=== PATIENT | male | born 1950 | race Caucasian/White ===

== ENCOUNTER 2016-04-10 09:17 | Inpatient (IN) | payer OTHER ==
[2016-03-14 11:07] VITALS: BMI 25.0
--- NOTE | 2016-03-14 11:34 | PAT Medication Instructions ---
Service Date Mar 14, 2016. Current Home Medication List Ascorbic Acid (Vitamin C), 1 TAB PO BID Budesonide/Formoterol Fumarate (Symbicort 160/4.5 Inhaler ), 1 PUFFS INH BID Flaxseed (Linseed) (Flax Seeds), 30 ML PO QAM Ibuprofen (Motrin), 800 MG PO QAM Lisinopril (Zestril), 10 MG PO QAM Montelukast Sodium (Singulair), 10 MG PO QPM [preparation h], PRN Medication Instructions For Your Scheduled Surgery - Check with surgeon for instructions: Ibuprofen (Motrin), 800 MG PO QAM - Hold the following medications 2 weeks prior to surgery: Flaxseed (Linseed) (Flax Seeds), 30 ML PO QAM - Hold the following medications the morning of surgery: [preparation h], PRN Lisinopril (Zestril), 10 MG PO QAM Ascorbic Acid (Vitamin C), 1 TAB PO BID - Take the following medications the morning of surgery with a sip of water: Budesonide/Formoterol Fumarate (Symbicort 160/4.5 Inhaler ), 1 PUFFS INH BID - Take the following medications as scheduled the night before surgery: [preparation h], PRN Montelukast Sodium (Singulair), 10 MG PO QPM Budesonide/Formoterol Fumarate (Symbicort 160/4.5 Inhaler ), 1 PUFFS INH BID Ascorbic Acid (Vitamin C), 1 TAB PO BID If you have any questions please call us at [phone] (Cyndy Napier PA-C) or [phone] or [phone]
[2016-03-14 12:28] LABS: BASO % 0.8 %; BASO ABS # 0.04 K/uL (0-0.2); COMPLETE YES; EOS % 1.8 %; HEMATOCRIT 42.3 % (42-52); LYMPH % 29.1 %; LYMPH ABS # 1.48 K/uL (1.2-3.4); MEAN CELL VOLUME 88.9 fL (80-100); MEAN CORPUSCULAR HEMOGLOBIN 29.8 pg (25-34); MEAN CORPUSCULAR HGB CONC 33.6 g/dl (32-36); MEAN PLATELET VOLUME 10.4 fL (7.4-10.4); NEUT % 57.3 %; PLATELET COUNT 263 K/uL (130-400); RED BLOOD COUNT 4.76 M/uL (4.7-6.1); WHITE BLOOD COUNT 5.08 K/uL (4.8-10.8)
--- NOTE | 2016-03-14 12:34 | DIAGNOSTIC IMAGING REPORT ---
CHEST 2 VIEWS ROUTINE CLINICAL HISTORY: Preoperative chest COMPARISON STUDY: 03/19/2012 FINDINGS: There is a 3 mm right midlung zone nodule likely postinflammatory. The heart is normal in size. There is no failure. There is no lobar consolidation. There are linear bibasilar atelectatic changes left greater than right. No pleural effusions are visualized.[ IMPRESSION: No active disease in the chest. Electronically signed by: Yuri Skelton M.D. 03/14/2016 12:33 PM
[2016-03-14 12:35] LABS: URINE APPEARANCE CLEAR (CLEAR); URINE BILIRUBIN NEG (NEG); URINE COLOR YELLOW; URINE NITRITE NEG (NEG); URINE PH 5.5 (4.5-7.5); URINE SPECIFIC GRAVITY 1.032 (1.000-1.030); UROBILINOGEN NEG (NEG); ZZUR CULT IF INDIC CLEAN CATCH NO
[2016-03-14 12:39] LABS: PROTHROMBIN TIME (PATIENT) 10.7 SECONDS (9.0-12.0)
[2016-03-14 12:40] LABS: MANUAL MICROSCOPIC REQUIRED? NO; REVIEW REQ? NO
[2016-03-14 13:29] LABS: BUN/CREATININE RATIO 23.1 (10-20); CREATININE 1.1 mg/dl (0.60-1.40); POTASSIUM 4.6 mmol/L (3.5-5.1)
[2016-03-14 13:47] LABS: CALCIUM 9.3 mg/dl (8.5-10.1)
--- NOTE | 2016-04-08 10:48 | HISTORY & PHYSICAL EXAMINATION ---
DATE OF ADMISSION: 04/09/2016 CHIEF COMPLAINT: Left knee pain. HISTORY OF PRESENT ILLNESS: Mr. Moreno is a 65-year-old male with a multiple year history of pain in his left knee. The patient rates his pain a 10/10. He has pain with his daily activities. He has limited standing and walking tolerance. Pain is worse with weightbearing. The patient has been taking anti-inflammatories and home exercise program without relief. He has failed conservative treatment and is scheduled for a left knee replacement. PAST MEDICAL HISTORY: Hypertension. He denies heart disease, diabetes or DVT. PAST SURGICAL HISTORY: Right total knee arthroplasty in 2012. SOCIAL HISTORY: The patient denies alcohol. He does admit to tobacco use. 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 FAMILY HISTORY: Negative for DVT. MEDICATIONS: Lisinopril 10 mg daily, montelukast 10 mg, ibuprofen 800 mg, Symbicort 160/4.5 mg, Emergen-C, and flaxseed oil. ALLERGIES: None. REVIEW OF SYSTEMS: See HPI. Ten other systems reviewed, all negative. PHYSICAL EXAMINATION: VITAL SIGNS: Height 5 feet 9 inches, weight 173 pounds, BMI is 26. GENERAL: This is a well-developed, well-nourished male who is alert and oriented x3. Mood and affect are appropriate. HEENT: Normocephalic, atraumatic. Mucous membranes are moist and intact. NECK: Supple without lymphadenopathy. HEART: Regular rate and rhythm without murmurs, rubs or gallops. LUNGS: Clear to auscultation without wheezes or rhonchi. ABDOMEN: Soft and nontender. Bowel sounds are equal and active. EXTREMITIES: No ecchymosis, redness or warmth. He has varus deformity. Range of motion is from 5-115 degrees with +2 laxity. He is neurovascularly intact with +5/5 strength. X-RAY EXAMINATION: AP and lateral views show joint space narrowing and osteophyte formation. IMPRESSION: Degenerative joint disease left knee. PLAN: The patient will be admitted for a left total knee arthroplasty. We will plan on aspirin for DVT prophylaxis. The patient's PCP is Dr. Gordon Andrade, in [place], [place]. He is unsure at this time if he is doing home physical therapy or outpatient.
[~2016-04-10] VITALS: Ht 175.3 cm; Wt 77.2 kg
[2016-04-10] VITALS (7 sets, daily range): BP systolic 124–171; BP diastolic 74–99; PULSE 57–87; TEMP 36.7–37; O2SAT 94–98; Ht 175.3 cm; Wt 77.2 kg
[2016-04-10] MEDS: TRANEXAMIC ACID INJ 1,000 MG in SODIUM CHLORIDE 0.9% 100ML 100 ML IV SCH ×2 (06:30→11:42)
--- NOTE | 2016-04-10 08:55 | History & Physical Bridge Note ---
H&P Re-Evaluation Bridge Note: I have examined the patient, reviewed the History & Physical and in the interval since the performance of the History & Physical I have noted the following changes of clinical significance: No changes noted
[~2016-04-10 09:17] MED LIST: ACETAMINOPHEN 500 MG TAB PO SCH; ASCO10003 PO; BUPIVACAINE 0.5 % 5 MG/1 ML PF 10ML VIAL ONE; BUPIVACAINE/EPINEPHRINE 0.25% 1:200,000 30 ML VIAL ONE; CEFAZOLIN 2000 MG/60 ML D5W 60 ML IV SCH; CeleBREX 200 MG CAP PO SCH; DEXAMETHASONE 4 MG TAB PO SCH; DEXAMETHASONE SOD INJ 4 MG/ML VIAL ONE; FAMOTIDINE 20 MG TAB PO SCH; FLAXPOW2 PO; GABAPENTIN 300 MG CAP PO SCH; IBUP-1428 PO; LACTATED RINGER'S 1000ML 500 ML IV ONE; LACTATED RINGER'S 1000ML IV SCH; LACTATED RINGER'S 500 ML IV SCH; LISI-461 PO; METOCLOPRAMIDE HCL 10 MG TAB PO SCH; MONT1TAB3 PO; OXYCODONE HCL 10 MG TABCR (OXYCONTIN) PO SCH; POLYMYXIN B SULFATE 100,000 UNITS in NSS 100ML IR SCH; PREPARATION H; ROPIVACAINE 5MG/ML 30 ML 150 MG, BUPIVACAINE/EPINEPHR 0.5% MPF 30 ML, KETOROLAC TROMETH... INFIL SCH; SYMIN160 INH; TRANEXAMIC ACID INJ 1,000 MG in SODIUM CHLORIDE 0.9% 100ML 100 ML IV SCH; VANCOMYCIN INJ 400 MG in NSS 100ML IR SCH
[2016-04-10] MEDS ORDERED: EpHEDrine SULFATE INJ 50 MG/ML AMP IV PRN (10:30)
[2016-04-10] MEDS ORDERED: FENTANYL CITRATE INJ 50 MCG/1 ML 2 ML VIAL IV PRN (10:30)
[2016-04-10] MEDS ORDERED: ONDANSETRON INJ 2 MG/ML 2 ML VIAL IV PRN ×2 (10:30→13:15)
[2016-04-10] MEDS ORDERED: ATROPINE SULFATE 0.1 MG/ML 5ML SYR IV PRN (10:30)
[2016-04-10] MEDS ORDERED: MIDAZOLAM HCL 1 MG/ML 2ML VIAL ONE (10:49)
[2016-04-10] MEDS ORDERED: ORTHO JOINT ANESTHETIC ONE (11:54)
[2016-04-10] MEDS ORDERED: BUPIVACAINE/EPINEPHRINE 0.25% 1:200,000 30 ML VIAL INJ ONE (12:37)
[2016-04-10] MEDS ORDERED: LIDOCAINE HCL 2% 2 ML VIAL (20MG/ML) ONE (12:43)
[2016-04-10] MEDS ORDERED: PROPOFOL IV EMULSION 10 MG/ML 20 ML VIAL IV ONE (12:43)
[2016-04-10] MEDS ORDERED: POVIDONE-IODINE OP SOLN 30 ML BTL TOP ONE (13:00)
[2016-04-10] MEDS ORDERED: BACITRACIN 50000 UNIT VIAL IR ONE (13:00)
--- NOTE | 2016-04-10 13:07 | [facility] Post Operative Brief Note ---
Immediate Operative Summary Operative Date Apr 10, 2016. Pre-Operative Diagnosis Degenerative joint disease, left knee Post-Operative Diagnosis same as preop Procedure(s) Performed Left Total Knee Arthroplasty Surgeon Dr. Jamel Ureña [employer] Surgeon(s) MAYA Agudelo Estimated Blood Loss 75ML Findings DJD TRICOMP Specimens A: Left knee bone and tissue Complication(s) None Disposition Recovery Room / PACU
[2016-04-10] MEDS ORDERED: DiphenhydrAMINE HCL 50 MG/ML VIAL IV PRN (13:15)
[2016-04-10] MEDS ORDERED: OXYCODONE HCL IR 5 MG TAB (IMMEDIATE RELEASE) PO PRN (13:15)
[2016-04-10] MEDS ORDERED: MoRPHine SULFATE 2 MG/ML CARP IV PRN (13:15)
[2016-04-10] MEDS ORDERED: METOCLOPRAMIDE HCL INJ 5 MG/ML 2 ML VIAL IV PRN (13:15)
[2016-04-10] MEDS ORDERED: BISACODYL 10 MG SUPP PR PRN (13:15)
[2016-04-10] MEDS ORDERED: KETOROLAC TROMETHAMINE 15 MG/ML VIAL IV. PRN (13:15)
[2016-04-10] MEDS ORDERED: TRAMADOL HCL 50 MG TAB PO PRN (13:15)
[2016-04-10] MEDS ORDERED: MAGNESIUM HYDROXIDE SUSP 30 ML UDC PO PRN (13:15)
[2016-04-10] MEDS ORDERED: SOD PHOSPHATE/SOD BIPHOSPHATE ENEMA 132 ML BTL PR PRN (13:15)
[2016-04-10] MEDS ORDERED: ZOLPIDEM TARTRATE 5 MG TAB PO PRN (13:15)
[2016-04-10] MEDS ORDERED: ALUMINUM/MAGNESIUM/SIMETH (MAALOX MAX) 30 ML UDC PO PRN (13:15)
--- NOTE | 2016-04-10 13:27 | OPERATIVE REPORT ---
DATE OF OPERATION: 04/10/2016 PREOPERATIVE DIAGNOSIS: Degenerative arthritis, left knee. POSTOPERATIVE DIAGNOSIS: Same. PROCEDURE: Left total knee with patient matched implant. SURGEON: Dr. Ureña. SENIOR GENETIC COUNSELOR: Alvarez Aleman PA-C. ANESTHESIA: Spinal. BLOOD LOSS: 75 mL. TOURNIQUET TIME: 20 minutes at 250 mmHg. DRAINS: Hemovac x2. CULTURES: None. COMPLICATIONS: None. COMPONENTS USED: Ngo \T\ Nephew Journey Knee System: Femur size 6, tibia size 5 x 11, patella size 38. NOTE: Alvarez Aleman PA-C was present and assisted throughout due to the complicated nature of this case. He helped with preparation and setup, first assisted throughout and personally closed the capsule, subcutaneous and skin layers. He also applied the postoperative dressing. OPERATION AND FINDINGS: DESCRIPTION: Following satisfactory spinal, the patient was supine. A tourniquet was placed but not initially inflated. The lower extremity was prepared with ChloraPrep and draped sterilely. Following a surgical time-out, a midline incision was made with a trivector approach. The knee showed severe grade 4 changes with a 10-degree flexion contracture and severe bone wear on the medial side. The cruciate ligaments were excised. The patient matched femoral block was applied. Femoral distal rotation and resection were set and completed. The 4-in-1 block was used to finish preparation of the femur. The patient matched tibial block was applied. Tibial resection was completed. Patella was freehand cut. Soft tissue balancing was completed and a trial reduction showed good tensioning and stability on the collateral ligaments, stable range of motion, and the patella tracked well. The tourniquet was inflated for better cement technique. The trial components were removed. The capsule was prepared with the orthopedic cocktail and after irrigation, the components were cemented with Simplex G cement. A Betadine soak was performed. When the cement had hardened, the Betadine was irrigated. The tourniquet was deflated. Two drains were placed. The arthrotomy was closed with a running suture of 0 V-Loc and reinforced with #1 Vicryl. The subcutaneous tissues were closed with 2-0 Vicryl and the skin with a running subcuticular stitch of 3-0 V-Loc. Dermabond and a dry dressing were applied. The patient was returned to his bed in good condition. I attest to the content of the Intraoperative Record and any orders documented therein. Any exceptio ns are noted below.
--- NOTE | 2016-04-10 14:31 | DIAGNOSTIC IMAGING REPORT ---
LEFT KNEE 1 OR 2 VIEWS ROUTINE CLINICAL HISTORY: Postop examination COMPARISON: None. DISCUSSION: There are postsurgical changes of a total left knee arthroplasty and patellar resurfacing. The femoral and tibial components appear well seated. There is an overlying surgical drain. There is air in soft tissues consistent with recent surgery. IMPRESSION: Postsurgical changes of a total left knee arthroplasty. Electronically signed by: Yuri Skelton M.D. 04/10/2016 2:30 PM
--- NOTE | 2016-04-10 14:47 | Anesthesiology Progress Note ---
Anesthesia Post Op Note Date & Time Apr 10, 2016 at 14:46 Vital Signs Pain Intensity: 3 Vital Signs Past 12 Hours Date Time Temp Pulse Resp B/P Pulse Ox O2 Delivery O2 Flow Rate FiO2 04/10/16 14:30 36.5 60 16 105/70 99 Nasal Cannula 2 04/10/16 14:15 36.5 61 16 108/71 99 Nasal Cannula 2 04/10/16 14:05 61 16 120/68 99 Nasal Cannula 2 04/10/16 13:55 60 16 118/72 99 Nasal Cannula 2 04/10/16 13:45 60 16 119/73 99 Nasal Cannula 2 04/10/16 13:39 36.6 62 16 109/70 100 Nasal Cannula 2 04/10/16 09:43 36.9 77 18 171/99 96 Room Air Notes Mental Status: alert / awake / arousable, participated in evaluation Pt Amnestic to Procedure: Yes Nausea / Vomiting: adequately controlled Pain: adequately controlled Airway Patency, RR, SpO2: stable & adequate BP & HR: stable & adequate Hydration State: stable & adequate Neuraxial Anesthesia: was administered, sensory block is resolving Anesthetic Complications: no major complications apparent
[2016-04-10] MEDS: D5W AND 1/2NSS + 20MEQ KCL 1,000 ML IV SCH (16:41)
[2016-04-10] MEDS: CEFAZOLIN IV 2,000 MG in DEXTROSE 5% 50ML 50 ML IV SCH (19:42)
[2016-04-10] MEDS ORDERED: TRANEXAMIC ACID INJ 1,000 MG in SODIUM CHLORIDE 0.9% 100ML 100 ML IV SCH (20:00)
[2016-04-10] MEDS: BUDESONIDE/FORMOTEROL FUMARATE 160/4.5 60 PUFFS/INHALER INH SCH (20:58)
[2016-04-10] MEDS: OXYCODONE HCL 10 MG TABCR (OXYCONTIN) PO SCH (21:00)
[2016-04-10] MEDS ORDERED: MONTELUKAST SOD 10 MG TAB PO SCH (21:00)
[2016-04-10] MEDS ORDERED: ASCORBIC ACID 500 MG TAB PO SCH (21:00)
[2016-04-10] MEDS ORDERED: SENNA 8.6 MG TAB PO SCH (21:00)
[2016-04-10] MEDS: ASPIRIN 81 MG ECTAB PO SCH (21:00)
[2016-04-10] MEDS: ASCORBIC ACID 500 MG TAB PO SCH (21:09)
[2016-04-10] MEDS: ACETAMINOPHEN 500 MG TAB PO SCH (21:58)
[2016-04-11] MEDS: D5W AND 1/2NSS + 20MEQ KCL 1,000 ML IV SCH (01:32)
[2016-04-11 03:30] VITALS: BP 122/77; PULSE 53; TEMP 36.6; O2SAT 96
[2016-04-11] MEDS: CEFAZOLIN IV 2,000 MG in DEXTROSE 5% 50ML 50 ML IV SCH (03:34)
[2016-04-11 03:39] VITALS: PULSE 61
[2016-04-11] MEDS: ACETAMINOPHEN 500 MG TAB PO SCH (05:17)
[2016-04-11 07:21] LABS: HEMATOCRIT 35.9 % (42-52); MEAN CELL VOLUME 87.3 fL (80-100); MEAN CORPUSCULAR HGB CONC 33.1 g/dl (32-36); PLATELET COUNT 248 K/uL (130-400); RED BLOOD COUNT 4.11 M/uL (4.7-6.1); WHITE BLOOD COUNT 12.44 K/uL (4.8-10.8)
[2016-04-11 07:31] VITALS: BP 159/86; PULSE 61; TEMP 36.7; O2SAT 96
--- NOTE | 2016-04-11 07:41 | Orthopedic Progress Note ---
Orthopedic Progress Note Date of Service Apr 11, 2016. Subjective Post OP Day: 1 Reports: feeling well, Denies: SOB, calf pain, chest pain, light headedness, nausea / vomiting Objective calves soft nontender, N/V intact, dressing C/D/I, A&O x3, toes mobile, hemovac drainage (140/50CC PER SHIFT) Date Time Temp Pulse Resp B/P Pulse Ox O2 Delivery O2 Flow Rate FiO2 04/11/16 07:31 36.7 61 16 159/86 96 Room Air 04/11/16 03:39 61 04/11/16 03:30 36.6 53 14 122/77 96 Room Air 04/10/16 23:27 36.7 57 16 126/74 94 Room Air 04/10/16 23:20 Room Air 04/10/16 18:44 36.8 67 14 147/88 96 Nasal Cannula 2.0 04/10/16 17:51 36.7 66 16 127/79 98 Nasal Cannula 2.0 04/10/16 16:43 36.7 71 16 145/86 98 Nasal Cannula 2.0 04/10/16 16:12 36.8 87 18 128/74 97 Nasal Cannula 2.0 04/10/16 15:45 95 Nasal Cannula 2.0 04/10/16 15:45 37.0 81 16 124/86 95 Nasal Cannula 2.0 04/10/16 15:45 95 Nasal Cannula 2.0 04/10/16 15:30 74 16 115/60 99 Nasal Cannula 2 04/10/16 15:15 67 16 118/72 99 Nasal Cannula 2 04/10/16 15:00 69 16 121/74 99 Nasal Cannula 2 04/10/16 14:45 36.7 62 16 108/72 99 Nasal Cannula 2 04/10/16 14:30 36.5 60 16 105/70 99 Nasal Cannula 2 04/10/16 14:15 36.5 61 16 108/71 99 Nasal Cannula 2 04/10/16 14:05 61 16 120/68 99 Nasal Cannula 2 04/10/16 13:55 60 16 118/72 99 Nasal Cannula 2 04/10/16 13:45 60 16 119/73 99 Nasal Cannula 2 04/10/16 13:39 36.6 62 16 109/70 100 Nasal Cannula 2 04/10/16 09:43 36.9 77 18 171/99 96 Room Air Laboratory Results 24 Hours: Test 04/11/16 06:54 Hematocrit 35.9 % Hemoglobin 11.9 g/dL Assessment & Plan Assessment: POD#1 SP LEFT TKA Inhouse Planning Pain Management: Celebrex, Oxycontin, PO Tylenol, Oxy IR DVT Prophylaxis: TEDs, SCDs, ASA Discharge Planning Discharge Planning: home with oppt (DC HOME TODAY)
--- NOTE | 2016-04-11 07:42 | Discharge Instructions ---
Discharge Instructions Admission Reason for Admission: Left Knee Degenerative Arthritis Discharge Discharge Diagnosis / Problem: SP LEFT TKA Discharge Goals Goal(s): Decrease discomfort, Improve function, Increase independence Activity Recommendations Activity Limitations: per Instructions/Follow-up section . Instructions / Follow-Up Instructions / Follow-Up ACTIVITY RECOMMENDATIONS: SELF CARE INSTRUCTIONS AFTER TOTAL KNEE REPLACEMENT A. You may need to continue a physical therapy program after discharge from the hospital. There are several options available to you. Your doctor will assist you in selecting the best one for you. 1. An out-patient facility 2 to 3 times a week for therapy or home therapy. 2. Continue working on all exercises taught to you in the hospital. Your goals should be to increase bending of your knee to 90 degrees and beyond and to fully straighten your knee. B. You may progress at your own pace from walking with a walker or crutches to a cane; then to no assistive devices. C. Make walking a part of your daily routine. Be up as much as comfortable with rest periods throughout the day. Rest with leg elevation is very important. Use the ice wrap frequently for the first 3-4 weeks. D. There are no restrictions on activities. You may ride in a car, shop, participate in security assurance specialist and all social activities. E. Wear the long elastic stockings (SILVIA hose) 20 hours a day for 2 weeks after surgery. They can be removed several times a day for laundering and for a bath. F. You may shower, no tub baths until cleared by your doctor. SPECIAL CARE INSTRUCTIONS: VERY IMPORTANT TO READ AND REVIEW A. There are a few signs you need to watch for after you are home. Call [facility] if you notice any of the followin. Increased severe knee pain. Some pain is expected especially when you exercise. 2. Increased swelling in your leg or knee; pain or swelling of the calf muscle in either lower leg. 3. Any fluid drainage from the incision. 4. Shortness of breath or chest pain. B. Please call [facility] at if you have any concerns or questions about your operation or recovery. The doctor or his nurse will return your call promptly. C. You must take antibiotics before dental work, bladder, bowel or other surgery. Your doctor will provide you with a permanent care to carry describing this precaution. IMPORTANT: * REMEMBER TO TAKE ASPIRIN, 81 MG, TWICE DAILY FOR 4 WEEKS UNLESS OTHERWISE DIRECTED. THIS IS YOUR BLOOD THINNER. * HIGH RISK PATIENTS MAY BE PRESCRIBED A STRONGER BLOOD THINNER. THIS WILL BE PROVIDED AT DISCHARGE. * CALL IF INCREASED PAIN, REDNESS, DRAINAGE OR FEVER GREATER THAT 101. * WEAR SILVIA HOSE 20 HOURS PER DAY FOR 2 WEEKS. DERMABOND Prineo- This is a mesh tape dressing that is covered with glue. It should remain in place until the incision is properly healed, usually 10-14 days. This dressing is designed to naturally slough off. You may trim the excess mesh tape as it peels off. Incision may be briefly wet in a shower. Dry immediately by blotting with a clean, dry towel. Do not bath or swim until instructed by your doctor. Do not scratch, rub, or pick at the dressing. Do not apply any topical ointments or lotions until dressing is completely removed and/or instructed by your doctor. There may be a small piece of suture material at one end of your incision. Do not pull or trim this. If it is bothersome or catching on clothing, you may cover it with a band-aid. FOLLOW UP VISIT: If appointment is not already scheduled: Please call [facility] to make a follow-up appointment for 2 weeks after your surgery at . Current Hospital Diet Patient's current hospital diet: Regular Diet Discharge Diet Recommended Diet: Regular Diet Procedures Procedures Performed: Left Total Knee Arthroplasty Pending Studies Studies pending at discharge: no Medical Emergencies . Who to Call and When: Medical Emergencies: If at any time you feel your situation is an emergency, please call 911 immediately. . Non-Emergent Contact Non-Emergency issues call your: Primary Care Provider . "Provider Documentation" section prepared by Kiera Pennington. VTE Core Measure Inpt VTE Proph given/why not?: Other Anticoagulation, T.E.D. Stockings, SCD's
[2016-04-11] MEDS ORDERED: SNK PO (07:44)
[2016-04-11] MEDS ORDERED: MORP-157 PO (07:44)
[2016-04-11] MEDS ORDERED: ACET-1138 PO (07:44)
[2016-04-11] MEDS ORDERED: RXC5 PO (07:44)
[2016-04-11] MEDS ORDERED: CLB200 PO (07:44)
[2016-04-11] MEDS ORDERED: ONDA8TAB6 PO (07:44)
[2016-04-11] MEDS ORDERED: ASPEC81 PO (07:44)
[2016-04-11 07:48] LABS: BUN/CREATININE RATIO 16.8 (10-20); CALCIUM 8.3 mg/dl (8.5-10.1); CREATININE 1.2 mg/dl (0.60-1.40); POTASSIUM 4.6 mmol/L (3.5-5.1)
--- NOTE | 2016-04-11 08:27 | Anesthesiology Progress Note ---
Anesthesia Post Op Note Date & Time Apr 11, 2016 at 08:25 Vital Signs Vital Signs Past 12 Hours Date Time Temp Pulse Resp B/P Pulse Ox O2 Delivery O2 Flow Rate FiO2 04/11/16 07:31 36.7 61 16 159/86 96 Room Air 04/11/16 03:39 61 04/11/16 03:30 36.6 53 14 122/77 96 Room Air 04/10/16 23:27 36.7 57 16 126/74 94 Room Air 04/10/16 23:20 Room Air Notes Mental Status: alert / awake / arousable, participated in evaluation Pt Amnestic to Procedure: Yes Nausea / Vomiting: adequately controlled Pain: adequately controlled Airway Patency, RR, SpO2: stable & adequate BP & HR: stable & adequate Hydration State: stable & adequate Neuraxial Anesthesia: sensory block resolved Anesthetic Complications: no major complications apparent
[2016-04-11] MEDS: OXYCODONE HCL 10 MG TABCR (OXYCONTIN) PO SCH (08:39)
[2016-04-11] MEDS: BUDESONIDE/FORMOTEROL FUMARATE 160/4.5 60 PUFFS/INHALER INH SCH (08:40)
[2016-04-11] MEDS: ASCORBIC ACID 500 MG TAB PO SCH (08:42)
[2016-04-11] MEDS: ASPIRIN 81 MG ECTAB PO SCH (08:43)
[2016-04-11] MEDS ORDERED: LISINOPRIL 10 MG TAB PO SCH (09:00)
[2016-04-11] MEDS ORDERED: MULTIVITAMIN TAB PO SCH (09:00)
[2016-04-11] MEDS ORDERED: PANTOprazole SOD 40 MG TAB PO SCH (09:00)
[2016-04-11 10:10] VITALS: BP 172/82; PULSE 98; O2SAT 97
[2016-04-11 10:11] VITALS: BP 159/86; PULSE 61; TEMP 36.7; O2SAT 96
[2016-04-11 11:09] VITALS: BP 138/74; PULSE 63; TEMP 37.1; O2SAT 96
[2016-04-12] MEDS ORDERED: LEVOTHYROXINE 50 MCG TAB PO SCH (06:00)
[2016-04-12] MEDS ORDERED: CeleBREX 200 MG CAP PO SCH (21:00)
--- NOTE | 2016-04-17 16:25 | DISCHARGE SUMMARY ---
DISCHARGE DIAGNOSIS: Degenerative joint disease left knee. SECONDARY DIAGNOSES: Hypertension. CONSULTS: None. COMPLICATIONS: None. PROCEDURES: Left total knee arthroplasty performed by Dr. Shane Ureña on 04/10/2016. BRIEF HISTORY: As dictated in history and physical. HOSPITAL SUMMARY: The patient was admitted on the above date and had the above-noted surgery performed which he tolerated well. On the first postoperative day, he was feeling well and had no complaints. Calves were soft and nontender, neurovascularly intact. Dressings clean, dry and intact. Toes were mobile. Vital signs were stable and he was afebrile. Hemoglobin was 11.9 and he was started on physical therapy protocol and continued on DVT prophylaxis and pain management. He continued to remain stable through the rest of his stay. He progressed with his physical therapy. Pain was controlled and it was felt he could be discharged to home on 04/11/2016. For further review, please see chart. LAB AND X-RAY DATA: As per chart. DISCHARGE INSTRUCTIONS: The patient was discharged to home in satisfactory condition on 04/11/2016. DIET: Regular. ACTIVITY: Follow TK instruction sheets and special care instructions as noted. Follow up with Dr. Ureña in 2 weeks. The patient to call for appointment if one has not been made for you. DISCHARGE MEDICATIONS: Acetaminophen 1000 mg p.o. q. 8 hours, aspirin 81 mg p.o. b.i.d., Celebrex 200 mg p.o. b.i.d., MS Contin 15 mg p.o. q. 12 hours, Zofran 8 mg p.o. q. 8 hours p.r.n., oxycodone 5-10 mg p.o. q. 4 hours p.r.n., senna 17.2 mg at bedtime. Resume taking ascorbic acid 1 tab p.o. b.i.d., Symbicort 160/4.5 one puff inhaled b.i.d., flaxseed 30 mL p.o. q.a.m., lisinopril 10 mg p.o. q.a.m., Singulair 10 mg p.o. q.p.m. and Preparation-H p.r.n. Stop taking ibuprofen.
== END 2016-04-11 12:43 | disposition home or self-care (01) | DRG 470 ==
LOC: ENRESERVTM → ENRESERVDT → C.ACU 09:17 → C.3E 13:10
PROVIDERS: ADMIT Orthopaedic Surgery; ATTEND Orthopaedic Surgery
PROC: 0SRD0J9 Replacement of Left Knee Joint with Synthetic Substitute, Cemented, Open Approach (ICD-10-PCS; principal; 2016-04-10 11:15)
DX: M17.12 Unilateral primary osteoarthritis, left knee (principal); I10 Essential (primary) hypertension; F17.290 Nicotine dependence, other tobacco product, uncomplicated; E78.5 Hyperlipidemia, unspecified; E03.9 Hypothyroidism, unspecified; J45.909 Unspecified asthma, uncomplicated; Z96.651 Presence of right artificial knee joint; Z79.1 Long term (current) use of non-steroidal anti-inflammatories (NSAID); Z79.899 Other long term (current) drug therapy; Z79.51 Long term (current) use of inhaled steroids